=== PATIENT | female | born 1970 | race Caucasian/White ===

== ENCOUNTER 2019-01-22 06:43 | Day surgery (SDC) | payer BC, OTHER ==
[~2019-01-22] VITALS: Ht 170.2 cm; Wt 73.5 kg
[~2019-01-22 06:43] MED LIST: AZEL0.1S NARES; BUDE8.43 NARES; LEVOTAB10 PO; MUCI120T PO; NS 1,000 ML IV ONE
[2019-01-22] MEDS ORDERED: LIDOCAINE 2% INJ 100 MG/5 ML SDV (FOR ANES.) As Ordered ONE (07:36)
[2019-01-22] MEDS ORDERED: PROPOFOL 200 MG/20 ML VIAL As Ordered ONE (07:36)
--- NOTE | 2019-01-22 07:54 | ROOR ---
Patient Name: Jessica Butcher Procedure Date: 01/22/2019 7:36 AM Date of : 1970 Age: 48 Room: [facility] Gender: Female Note Status: Finalized Procedure: Total Colonoscopy to Cecum + ileoscopy Indications: Screening for colorectal malignant neoplasm Providers: Jose Angelo MD Referring MD: SHERIE KRISHNAN NP Requesting Provider: Medicines: Monitored Anesthesia Care Complications: No immediate complications. Procedure: Pre-Anesthesia Assessment: - The heart rate, respiratory rate, oxygen saturations, blood pressure, adequacy of pulmonary ventilation, and response to care were monitored throughout the procedure. The Colonoscope was introduced through the anus and advanced to the cecum, identified by appendiceal orifice and ileocecal valve. The colonoscopy was performed without difficulty. The patient tolerated the procedure well. The quality of the bowel preparation was excellent. Findings: The perianal and digital rectal examinations were normal. Non-bleeding internal hemorrhoids were found during retroflexion. The hemorrhoids were small and Grade I (internal hemorrhoids that do not prolapse). No other significant abnormalities were identified in a careful examination of the remainder of the colon. The terminal ileum appeared normal. The exam was otherwise without abnormality. Impression: - Non-bleeding internal hemorrhoids. - The examined portion of the ileum was normal. - The examination was otherwise normal. - No specimens collected. - The exam was otherwise normal to the cecum. Recommendation: - Patient has a contact number available for emergencies. The signs and symptoms of potential delayed complications were discussed with the patient. Return to normal activities tomorrow. Written discharge instructions were provided to the patient. - High fiber diet. - Discharge patient to home. - Continue present medications. - Repeat colonoscopy in 10 years for screening purposes. - Return to referring physician. - The findings and recommendations were discussed with the patient's family. Jose Angelo MD Joes Angelo MD 01/22/2019 7:53:48 AM Electronically signed by Jose Angelo MD Number of Addenda: 0 Note Initiated On: 01/22/2019 7:36 AM Estimated Blood Loss: Estimated blood loss: none.
[2019-01-22 08:15] VITALS: BP 115/68
== END 2019-01-22 08:30 | disposition home or self-care (01) ==
LOC: M OPP 06:43
PROVIDERS: ATTEND Internal Medicine Gastroenterology
DX: K64.0 First degree hemorrhoids (principal); Z12.11 Encounter for screening for malignant neoplasm of colon

== ENCOUNTER → 2021-12-30 | Outpatient (REF) | payer BC, OTHER ==
[~2021-12-30] MED LIST changes: -NS 1,000 ML IV ONE
[2021-12-30 17:41] LABS: BACTERIA, URINE AUTO 1+ (NEGATIVE); MUCUS, URINE SMALL (NEGATIVE); RBC, URINE AUTO 8 /HPF (0-3); SQUAMOUS EPITHELIAL CELL UR AU 2 /HPF (0-6); TRANSITIONAL EPITHELIAL AUTO 1 /HPF; WBC, URINE AUTO 91 /HPF (0-3)
== END ==
LOC: M LAB REF 16:22
PROVIDERS: ATTEND Registered Nurse
DX: N39.0 Urinary tract infection, site not specified (principal)

== ENCOUNTER → 2022-01-09 | Outpatient (REF) | payer BC, OTHER | LOC: M LAB REF 14:48 | PROVIDERS: ATTEND Physician Assistant Medical | DX: N39.0 Urinary tract infection, site not specified (principal) ==

== ENCOUNTER → 2022-01-20 | Outpatient (REF) | payer BC, OTHER | LOC: M LAB REF 12:09 | PROVIDERS: ATTEND Registered Nurse | DX: N76.0 Acute vaginitis (principal) ==

== ENCOUNTER → 2022-05-03 | Outpatient (REF) | payer OTHER | LOC: M LAB REF 16:35 | PROVIDERS: ATTEND Registered Nurse | DX: N39.0 Urinary tract infection, site not specified (principal) ==

== ENCOUNTER → 2022-10-06 | Outpatient (CLI) | payer OTHER | LOC: M WUC 09:27 | PROVIDERS: ATTEND Physician Assistant | DX: S90.121A Contusion of right lesser toe(s) without damage to nail, initial encounter (principal); X58.XXXA Exposure to other specified factors, initial encounter; Y92.9 Unspecified place or not applicable; Y93.9 Activity, unspecified; Y99.9 Unspecified external cause status ==

== ENCOUNTER → 2023-09-12 | Outpatient (REF) | payer BC, OTHER | LOC: M LAB REF 12:34 | PROVIDERS: ATTEND Student in an Organized Health Care Education/Training Program | DX: R30.0 Dysuria (principal) ==